=== PATIENT | male | born 1945 | race Hispanic/Latino ===

== ENCOUNTER 2018-03-11 21:50 | Emergency (ER) | payer OTHER ==
[2018-03-11 23:26] LABS: BASO % 0.2 % (0.0-1.0); HEMATOCRIT 27.6 % (42.0-52.0); HEMOGLOBIN 8.6 g/dl (13.5-17.5); IMMATURE GRANULOCYTE % 1.6 % (0-3.0); LYMPH # 0.9 10^3/uL (1.5-4.5); LYMPH % 7.3 % (24.0-44.0); MEAN CORPUSCULAR HEMOGLOBIN 24.6 pg (27.0-33.0); MEAN CORPUSCULAR HGB CONC 31.2 g/dl (32.0-36.5); MEAN CORPUSCULAR VOLUME 79.1 fl (80.0-96.0); MONO # 0.8 10^3/uL (0.0-0.8); MONO % 6.2 % (0.0-5.0); NEUTROPHILS # 10.7 10^3/uL (1.8-7.7); NEUTROPHILS % 84.7 % (36.0-66.0); PLATELET COUNT, AUTOMATED 471 10^3/uL (150-450); RED BLOOD COUNT 3.49 10^6/uL (4.30-6.10); RED CELL DISTRIBUTION WIDTH 15.4 % (11.5-14.5); WHITE BLOOD COUNT 12.7 10^3/uL (4.0-10.0)
[2018-03-11] MEDS: ONDANSETRON 4MG/2ML VIAL (J2405) IV (23:42)
[2018-03-11] MEDS: NS 1,000 ML IV (23:42)
[2018-03-11 23:53] LABS: ALBUMIN 1.8 GM/DL (3.2-5.2); ALBUMIN/GLOBULIN RATIO 0.38 (1.00-1.93); ALKALINE PHOSPHATASE 738 U/L (45-117); ALT/SGPT 52 U/L (12-78); ANION GAP 12 MEQ/L (8-16); AST/SGOT 75 U/L (7-37); BILIRUBIN,DIRECT < 0.1 MG/DL (0.0-0.2); BILIRUBIN,TOTAL 0.5 MG/DL (0.2-1.0); BLOOD UREA NITROGEN 21 MG/DL (7-18); CALCIUM LEVEL 7.6 MG/DL (8.8-10.2); CARBON DIOXIDE LEVEL 21 MEQ/L (21-32); CHLORIDE LEVEL 102 MEQ/L (98-107); CREATININE FOR GFR 1.21 MG/DL (0.70-1.30); GLOMERULAR FILTRATION RATE > 60.0 (>42); GLUCOSE, FASTING 171 MG/DL (70-100); LIPASE 105 U/L (73-393); POTASSIUM SERUM 4.8 MEQ/L (3.5-5.1); SODIUM LEVEL 135 MEQ/L (136-145); TOTAL PROTEIN 6.6 GM/DL (6.4-8.2)
[2018-03-12] MEDS ORDERED: ISOVUE-370 76% 100ML VIAL (Q9967) As Ordered
[2018-03-12 01:52] LABS: KETONE, URINE AUTO RFX NEGATIVE (NEGATIVE); LEUKOCYTE ESTERASE UR AUTO RFX NEGATIVE (NEGATIVE); NITRITE, URINE AUTO RFX NEGATIVE (NEGATIVE); RBC, URINE AUTO RFX 3 /HPF (0-3); SPECIFIC GRAVITY UR AUTO RFX 1.024 (1.002-1.035); SQUAM EPITHELIAL CELL UR AURFX 0 /HPF (0-6); WBC, URINE AUTO RFX 2 /HPF (0-3)
== END 2018-03-12 02:30 | disposition home or self-care (01) ==
LOC: M ED 21:50
DX: C61 Malignant neoplasm of prostate (principal); R33.9 Retention of urine, unspecified; C79.51 Secondary malignant neoplasm of bone; R11.10 Vomiting, unspecified; R63.0 Anorexia; R63.4 Abnormal weight loss; F17.200 Nicotine dependence, unspecified, uncomplicated; Z79.899 Other long term (current) drug therapy; Z79.52 Long term (current) use of systemic steroids
CPT/HCPCS: J2405

== ENCOUNTER → 2018-03-14 | Outpatient (CLI) | payer MEDICARE | LOC: M SMT 09:36 | DX: C61 Malignant neoplasm of prostate (principal) | CPT/HCPCS: 84153 ==

== ENCOUNTER 2018-03-21 12:05 | Emergency (ER) | payer MEDICARE, OTHER ==
[2018-03-21] MEDS: NS 1,000 ML IV (12:42)
[2018-03-21 12:50] LABS: BASO % 0.2 % (0.0-1.0); EOS % 0.1 % (0.0-3.0); HEMATOCRIT 30.4 % (42.0-52.0); HEMOGLOBIN 9.3 g/dl (13.5-17.5); IMMATURE GRANULOCYTE % 4.5 % (0-3.0); LYMPH # 0.9 10^3/uL (1.5-4.5); LYMPH % 9.2 % (24.0-44.0); MEAN CORPUSCULAR HEMOGLOBIN 24.5 pg (27.0-33.0); MEAN CORPUSCULAR HGB CONC 30.6 g/dl (32.0-36.5); MEAN CORPUSCULAR VOLUME 80.2 fl (80.0-96.0); MONO # 0.7 10^3/uL (0.0-0.8); MONO % 6.8 % (0.0-5.0); NEUTROPHILS # 7.9 10^3/uL (1.8-7.7); NEUTROPHILS % 79.2 % (36.0-66.0); PLATELET COUNT, AUTOMATED 437 10^3/uL (150-450); RED BLOOD COUNT 3.79 10^6/uL (4.30-6.10); RED CELL DISTRIBUTION WIDTH 16.6 % (11.5-14.5)
[2018-03-21 13:41] LABS: ACETAMINOPHEN LEVEL < 2.0 UG/ML (10.0-30.0); ALBUMIN/GLOBULIN RATIO 0.33 (1.00-1.93); ALKALINE PHOSPHATASE 822 U/L (45-117); ALT/SGPT 27 U/L (12-78); ANION GAP 12 MEQ/L (8-16); AST/SGOT 43 U/L (7-37); BILIRUBIN,DIRECT 0.1 MG/DL (0.0-0.2); BILIRUBIN,TOTAL 0.4 MG/DL (0.2-1.0); BLOOD UREA NITROGEN 23 MG/DL (7-18); CALCIUM LEVEL 8.4 MG/DL (8.8-10.2); CARBON DIOXIDE LEVEL 24 MEQ/L (21-32); CHLORIDE LEVEL 100 MEQ/L (98-107); CK-MB VALUE MASS < 1.0 NG/ML (<3.6); CPK CREATINE PHOSPHOKINASE 45 U/L (39-308); CREATININE FOR GFR 1.17 MG/DL (0.70-1.30); GLOMERULAR FILTRATION RATE > 60.0 (>42); GLUCOSE, FASTING 124 MG/DL (70-100); MB/CK RELATIVE INDEX 2.22 (< OR =4); POTASSIUM SERUM 3.7 MEQ/L (3.5-5.1); SALICYLATE LEVEL < 1.7 MG/DL (5.0-30.0); SODIUM LEVEL 136 MEQ/L (136-145); THYROID STIMULATING HORMONE 0.776 uIU/ML (0.358-3.740); TOTAL PROTEIN 8.1 GM/DL (6.4-8.2); TROPONIN I < 0.02 NG/ML (< 0.10)
[2018-03-21] MEDS: predniSONE 20 MG TAB PO (14:20)
[2018-03-21] MEDS: valACYclovir HCL 500 MG TAB PO (14:20)
== END 2018-03-21 14:22 | disposition home or self-care (01) ==
LOC: M ED 12:05
DX: G51.0 Bell's palsy (principal); I10 Essential (primary) hypertension; I25.10 Atherosclerotic heart disease of native coronary artery without angina pectoris; Z82.49 Family history of ischemic heart disease and other diseases of the circulatory system; Z79.899 Other long term (current) drug therapy; Z87.891 Personal history of nicotine dependence
CPT/HCPCS: 71045

== ENCOUNTER → 2018-03-23 | Outpatient (REF) | payer MEDICARE, OTHER ==
[2018-03-23 18:53] LABS: APPEARANCE, URINE CLOUDY (CLEAR); BACTERIA, URINE AUTO 3+ (NEGATIVE); BILIRUBIN, URINE AUTO NEGATIVE (NEGATIVE); BLOOD, URINE BLOOD 2+ (NEGATIVE); COLOR, URINE YELLOW (YELLOW); GLUCOSE, URINE (UA) AUTO NEGATIVE (NEGATIVE); KETONE, URINE AUTO TRACE mg/dL (NEGATIVE); LEUKOCYTE ESTERASE, URINE AUTO 1+ (NEGATIVE); MUCUS, URINE SMALL (NEGATIVE); NITRITE, URINE AUTO NEGATIVE (NEGATIVE); PROTEIN, URINE AUTO 2+ mg/dL (NEGATIVE); RBC, URINE AUTO 4 /HPF (0-3); SPECIFIC GRAVITY URINE AUTO 1.015 (1.002-1.035); SQUAMOUS EPITHELIAL CELL UR AU 2 /HPF (0-6); UROBILINOGEN, URINE AUTO 0.2 mg/dL (0.0-2.0); WBC, URINE AUTO 18 /HPF (0-3)
== END ==
LOC: M SMT 17:00
DX: R33.9 Retention of urine, unspecified (principal)
CPT/HCPCS: 81001

== ENCOUNTER → 2018-03-29 | Outpatient (CLI) | payer MEDICARE, MEDICAID, OTHER | LOC: M ONCR 09:00 | DX: C61 Malignant neoplasm of prostate (principal); C79.51 Secondary malignant neoplasm of bone | CPT/HCPCS: G0463 ==

== ENCOUNTER → 2018-04-03 | Outpatient (CLI) | payer MEDICARE, OTHER | LOC: M RAD 10:58 | DX: C61 Malignant neoplasm of prostate (principal); M25.551 Pain in right hip; M25.552 Pain in left hip | CPT/HCPCS: 72170 ==

== ENCOUNTER 2018-04-05 10:18 | Outpatient (RCR) | payer MEDICARE | END 2018-04-18 | LOC: M ONCR 10:18 | DX: C79.51 Secondary malignant neoplasm of bone (principal); C61 Malignant neoplasm of prostate | CPT/HCPCS: 77334 ==

== ENCOUNTER → 2018-04-05 | Outpatient (CLI) | payer MEDICARE, MEDICAID | LOC: M RAD 10:11 | DX: C61 Malignant neoplasm of prostate (principal); C79.51 Secondary malignant neoplasm of bone | CPT/HCPCS: 78306 ==

== ENCOUNTER → 2018-04-12 | Outpatient (CLI) | payer MEDICARE, OTHER ==
[2018-04-12 11:38] LABS: CHOLESTEROL LEVEL 156 MG/DL (<200); CHOLESTEROL RISK RATIO 4.333 (<5); HDL CHOLESTEROL 36 MG/DL (>40); LDL CHOLESTEROL 92 MG/DL (<100); NON-HDL-C 120 MG/DL; TRIGLYCERIDES LEVEL 140 MG/DL (<150)
[2018-04-12 11:44] LABS: ESTIMATED AVERAGE GLUCOSE 174 MG/DL (60-110); HEMOGLOBIN A1c 7.7 %
[2018-04-12 20:49] LABS: TOTAL 25(OH) VITAMIN D 26.2 NG/ML (30.0-100.0)
[2018-04-13 14:47] LABS: Lyme Disease IgG/IgM Antibodie <0.91 ISR (0.00-0.90); Lyme Disease IgM Ab Quantitati <0.80 index (0.00-0.79)
== END ==
LOC: M LAB 10:01
DX: E11.9 Type 2 diabetes mellitus without complications (principal); E78.5 Hyperlipidemia, unspecified; R29.810 Facial weakness

== ENCOUNTER → 2018-04-12 | Outpatient (CLI) | payer MEDICARE ==
[~2018-04-12] MED LIST: PROHANCE 279.3MG/ML 5ML VIAL (A9576) As Ordered
== END ==
LOC: M RAD 14:55
DX: C61 Malignant neoplasm of prostate (principal); I73.9 Peripheral vascular disease, unspecified; E11.51 Type 2 diabetes mellitus with diabetic peripheral angiopathy without gangrene; D32.0 Benign neoplasm of cerebral meninges; R51 Headache; R11.0 Nausea; E78.5 Hyperlipidemia, unspecified; R29.810 Facial weakness
CPT/HCPCS: A9576

== ENCOUNTER 2018-04-16 21:51 | Inpatient (IN) | payer MEDICARE, OTHER ==
[2018-04-16] MEDS: NS 1,000 ML IV (23:15)
[2018-04-16 23:54] LABS: VENOUS BASE EXCESS -1.4 (-2.0-2.0); VENOUS HCO3 22.9 MEQ/L (23.0-27.0); VENOUS O2 SATURATION 63.2 % (60.0-80.0); VENOUS PARTIAL PRESSURE CO2 36.3 mmHg (38.0-50.0); VENOUS PARTIAL PRESSURE O2 33.9 mmHg (30.0-50.0); VENOUS PH 7.418 UNITS (7.330-7.430); VENOUS STANDARD HCO3 22.9 MEQ/L
[2018-04-17 00:07] LABS: KETONE, URINE AUTO RFX NEGATIVE (NEGATIVE); MUCUS, URINE RFX SMALL (NEGATIVE); RBC, URINE AUTO RFX 22 /HPF (0-3); SPECIFIC GRAVITY UR AUTO RFX 1.012 (1.002-1.035); SQUAM EPITHELIAL CELL UR AURFX 0 /HPF (0-6); URIC ACID CRYSTALS RFX SMALL
[2018-04-17 00:09] LABS: LEUKOCYTE ESTERASE UR AUTO RFX 3+ (NEGATIVE); NITRITE, URINE AUTO RFX POSITIVE (NEGATIVE); WBC, URINE AUTO RFX 160 /HPF (0-3)
[2018-04-17 00:13] LABS: BASO % 0.1 % (0.0-1.0); EOS % 0.1 % (0.0-3.0); HEMATOCRIT 25.2 % (42.0-52.0); HEMOGLOBIN 7.6 g/dl (13.5-17.5); IMMATURE GRANULOCYTE % 4.7 % (0-3.0); LYMPH # 1.1 10^3/uL (1.5-4.5); LYMPH % 15.1 % (24.0-44.0); MEAN CORPUSCULAR HEMOGLOBIN 24.4 pg (27.0-33.0); MEAN CORPUSCULAR HGB CONC 30.2 g/dl (32.0-36.5); MEAN CORPUSCULAR VOLUME 80.8 fl (80.0-96.0); MONO # 0.5 10^3/uL (0.0-0.8); MONO % 6.7 % (0.0-5.0); NEUTROPHILS # 5.2 10^3/uL (1.8-7.7); NEUTROPHILS % 73.3 % (36.0-66.0); PLATELET COUNT, AUTOMATED 220 10^3/uL (150-450); RED BLOOD COUNT 3.12 10^6/uL (4.30-6.10); RED CELL DISTRIBUTION WIDTH 20.4 % (11.5-14.5)
[2018-04-17 00:16] LABS: AMMONIA < 10 uMOL/L (<32)
[2018-04-17 00:24] LABS: ACETAMINOPHEN LEVEL < 2.0 UG/ML (10.0-30.0); ALBUMIN 1.9 GM/DL (3.2-5.2); ALBUMIN/GLOBULIN RATIO 0.46 (1.00-1.93); ALKALINE PHOSPHATASE 794 U/L (45-117); ALT/SGPT 39 U/L (12-78); ANION GAP 12 MEQ/L (8-16); AST/SGOT 38 U/L (7-37); BILIRUBIN,DIRECT < 0.1 MG/DL (0.0-0.2); BILIRUBIN,TOTAL 0.2 MG/DL (0.2-1.0); BLOOD UREA NITROGEN 18 MG/DL (7-18); CALCIUM LEVEL 7.7 MG/DL (8.8-10.2); CARBON DIOXIDE LEVEL 22 MEQ/L (21-32); CHLORIDE LEVEL 108 MEQ/L (98-107); CPK CREATINE PHOSPHOKINASE 90 U/L (39-308); CREATININE FOR GFR 1.04 MG/DL (0.70-1.30); ETHYL ALCOHOL (ETHANOL) < 0.003 % (0.000-0.010); GLOMERULAR FILTRATION RATE > 60.0 (>42); GLUCOSE, FASTING 130 MG/DL (70-100); MB/CK RELATIVE INDEX 2.56 (< OR =4); POTASSIUM SERUM 3.4 MEQ/L (3.5-5.1); SALICYLATE LEVEL < 1.7 MG/DL (5.0-30.0); SODIUM LEVEL 142 MEQ/L (136-145); THYROID STIMULATING HORMONE 0.909 uIU/ML (0.358-3.740); TROPONIN I 0.05 NG/ML (< 0.10)
[2018-04-17 00:45] LABS: RETIC HEMOGLOBIN EQUIVALENT 24.7 pg (24-36); RETICULOCYTE # 44.6 10^9/L (17-77); RETICULOCYTE % 1.4 % (0.5-1.5)
[2018-04-17 00:54] LABS: AMPHETAMINES LEVEL URINE NEGATIVE (NEGATIVE); BARBITURATES URINE NEGATIVE (NEGATIVE); BENZODIAZEPINES URINE NEGATIVE (NEGATIVE); CANNABINOIDS URINE NEGATIVE (NEGATIVE); COCAINE METABOLITE URINE NEGATIVE (NEGATIVE); METHADONE URINE NEGATIVE (NEGATIVE); OPIATES URINE NEGATIVE (NEGATIVE); PHENCYCLIDINE URINE NEGATIVE (NEGATIVE)
[2018-04-17 00:57] LABS: LACTIC ACID SEPSIS PROTOCOL 1.8 MMOL/L (0.4-2.0)
[2018-04-17 01:03] LABS: INR 1.17; PROTHROMBIN TIME 15.1 SECONDS (12.1-14.4)
[2018-04-17 01:05] LABS: PARTIAL THROMBOPLASTIN TIME 32.2 SECONDS (25.4-37.6)
[2018-04-17] MEDS: CIPROFLOXACIN 400 MG in APPROPRIATE DILUENT 1 EA IV (01:30)
[2018-04-17 02:22] LABS: IMMEDIATE SPIN CROSSMATCH 1 2
[2018-04-17] MEDS: NS 1,000 ML IV ×2 (03:37→21:05)
[2018-04-17] MEDS ORDERED: BISACODYL 5 MG TAB PO (03:45)
[2018-04-17] MEDS: HEPARIN SOD (PORCINE) 5000 UNITS/ML VIAL SC ×3 (05:59→21:05)
[2018-04-17 07:13] LABS: BASO % 0.2 % (0.0-1.0); EOS % 0.3 % (0.0-3.0); HEMATOCRIT 24.7 % (42.0-52.0); HEMOGLOBIN 7.8 g/dl (13.5-17.5); IMMATURE GRANULOCYTE % 4.3 % (0-3.0); LYMPH # 0.9 10^3/uL (1.5-4.5); LYMPH % 15.4 % (24.0-44.0); MEAN CORPUSCULAR HEMOGLOBIN 25.2 pg (27.0-33.0); MEAN CORPUSCULAR HGB CONC 31.6 g/dl (32.0-36.5); MEAN CORPUSCULAR VOLUME 79.9 fl (80.0-96.0); MONO # 0.4 10^3/uL (0.0-0.8); MONO % 7.6 % (0.0-5.0); NEUTROPHILS # 4.2 10^3/uL (1.8-7.7); NEUTROPHILS % 72.2 % (36.0-66.0); PLATELET COUNT, AUTOMATED 197 10^3/uL (150-450); RED BLOOD COUNT 3.09 10^6/uL (4.30-6.10); RED CELL DISTRIBUTION WIDTH 18.7 % (11.5-14.5); WHITE BLOOD COUNT 5.8 10^3/uL (4.0-10.0)
[2018-04-17 07:32] LABS: ANION GAP 11 MEQ/L (8-16); BLOOD UREA NITROGEN 12 MG/DL (7-18); CALCIUM LEVEL 7.7 MG/DL (8.8-10.2); CARBON DIOXIDE LEVEL 23 MEQ/L (21-32); CHLORIDE LEVEL 108 MEQ/L (98-107); CREATININE FOR GFR 0.89 MG/DL (0.70-1.30); GLOMERULAR FILTRATION RATE > 60.0 (>42); GLUCOSE, FASTING 129 MG/DL (70-100); SODIUM LEVEL 142 MEQ/L (136-145)
[2018-04-17] MEDS: TAMSULOSIN 0.4 MG CAP PO (08:41)
[2018-04-17] MEDS: POTASSIUM CHLORIDE 10 MEQ SR TABLET PO ×2 (08:41→18:30)
[2018-04-17 11:38] LABS: MAGNESIUM LEVEL 1.7 MG/DL (1.8-2.4)
[2018-04-17] MEDS: MAG SULF 1GM/100ML (MAG RUN) 1 GM in APPROPRIATE DILUENT 1 EA IV ×2 (12:00→13:00)
[2018-04-17 12:21] LABS: HEMATOCRIT 26.6 % (42.0-52.0); HEMOGLOBIN 8.2 g/dl (13.5-17.5)
[2018-04-17 18:26] LABS: HEMOGLOBIN 7.9 g/dl (13.5-17.5)
[2018-04-17] MEDS: PROCHLORPERAZINE 5 MG TAB (S0183) PO (22:22)
[2018-04-18] MEDS: HEPARIN SOD (PORCINE) 5000 UNITS/ML VIAL SC ×3 (05:15→21:32)
[2018-04-18 06:21] LABS: HEMATOCRIT 29.7 % (42.0-52.0); HEMOGLOBIN 9.3 g/dl (13.5-17.5); MEAN CORPUSCULAR HEMOGLOBIN 25.3 pg (27.0-33.0); MEAN CORPUSCULAR HGB CONC 31.3 g/dl (32.0-36.5); MEAN CORPUSCULAR VOLUME 80.9 fl (80.0-96.0); PLATELET COUNT, AUTOMATED 185 10^3/uL (150-450); RED BLOOD COUNT 3.67 10^6/uL (4.30-6.10); RED CELL DISTRIBUTION WIDTH 18.4 % (11.5-14.5); WHITE BLOOD COUNT 5.6 10^3/uL (4.0-10.0)
[2018-04-18 06:43] LABS: ANION GAP 8 MEQ/L (8-16); BLOOD UREA NITROGEN 11 MG/DL (7-18); CALCIUM LEVEL 8.3 MG/DL (8.8-10.2); CARBON DIOXIDE LEVEL 24 MEQ/L (21-32); CHLORIDE LEVEL 110 MEQ/L (98-107); CREATININE FOR GFR 0.84 MG/DL (0.70-1.30); GLOMERULAR FILTRATION RATE > 60.0 (>42); GLUCOSE, FASTING 118 MG/DL (70-100); SODIUM LEVEL 142 MEQ/L (136-145)
[2018-04-18] MEDS: TAMSULOSIN 0.4 MG CAP PO (08:30)
[2018-04-18 09:08] LABS: MAGNESIUM LEVEL 2.2 MG/DL (1.8-2.4)
[2018-04-18] MEDS: VANCOMYCIN HCL 750 MG, VIAL MATE ADAPTER 1 EACH in D5W 250 ML IV (11:12)
[2018-04-18 13:01] LABS: RETICULOCYTE # 47.1 10^9/L (17-77); RETICULOCYTE % 1.3 % (0.5-1.5)
[2018-04-18] MEDS: VANCOMYCIN HCL 500 MG in D5W MINI-BAG PLUS 100 ML IV (13:07)
[2018-04-18 13:44] LABS: FERRITIN 1986 NG/ML (26-388); IRON (FE) 60 UG/DL (65-175); TOTAL IRON BINDING CAPACITY 154 UG/DL (250-450)
[2018-04-18 14:42] LABS: Lyme Disease IgG/IgM Antibodie <0.91 ISR (0.00-0.90); Lyme Disease IgM Ab Quantitati <0.80 index (0.00-0.79)
[2018-04-18] MEDS: ACETAMINOPHEN TAB 650MG DOSE (2X325MG) PO ×2 (16:42→22:43)
[2018-04-18] MEDS: PROCHLORPERAZINE 5 MG TAB (S0183) PO (21:34)
[2018-04-18] MEDS: VANCOMYCIN HCL 1,000 MG, VIAL MATE ADAPTER 1 EACH in D5W 250 ML IV (22:38)
[2018-04-19] MEDS: MORPHINE 4 MG/ML 1ML VIAL/SYRINGE (J2270) IV (01:19)
[2018-04-19] MEDS: HEPARIN SOD (PORCINE) 5000 UNITS/ML VIAL SC ×3 (05:43→21:10)
[2018-04-19] MEDS: ACETAMINOPHEN TAB 650MG DOSE (2X325MG) PO (05:46)
[2018-04-19 06:14] LABS: HEMATOCRIT 30.5 % (42.0-52.0); HEMOGLOBIN 9.5 g/dl (13.5-17.5); MEAN CORPUSCULAR HEMOGLOBIN 25.7 pg (27.0-33.0); MEAN CORPUSCULAR HGB CONC 31.1 g/dl (32.0-36.5); MEAN CORPUSCULAR VOLUME 82.4 fl (80.0-96.0); PLATELET COUNT, AUTOMATED 181 10^3/uL (150-450); RED CELL DISTRIBUTION WIDTH 18.6 % (11.5-14.5); WHITE BLOOD COUNT 5.3 10^3/uL (4.0-10.0)
[2018-04-19 06:42] LABS: ANION GAP 7 MEQ/L (8-16); BLOOD UREA NITROGEN 10 MG/DL (7-18); CALCIUM LEVEL 8.1 MG/DL (8.8-10.2); CARBON DIOXIDE LEVEL 25 MEQ/L (21-32); CHLORIDE LEVEL 107 MEQ/L (98-107); CREATININE FOR GFR 0.83 MG/DL (0.70-1.30); GLOMERULAR FILTRATION RATE > 60.0 (>42); GLUCOSE, FASTING 98 MG/DL (70-100); POTASSIUM SERUM 3.6 MEQ/L (3.5-5.1); SODIUM LEVEL 139 MEQ/L (136-145)
[2018-04-19] MEDS: TAMSULOSIN 0.4 MG CAP PO (08:59)
[2018-04-19 11:34] LABS: BEDSIDE GLUCOSE 104 MG/DL (83-110)
[2018-04-19] MEDS: VANCOMYCIN HCL 1,000 MG, VIAL MATE ADAPTER 1 EACH in D5W 250 ML IV ×2 (12:28→23:07)
[2018-04-19 16:55] LABS: BEDSIDE GLUCOSE 107 MG/DL (83-110)
[2018-04-19 21:02] LABS: BEDSIDE GLUCOSE 111 MG/DL (83-110)
[2018-04-19 23:03] LABS: VANCOMYCIN LEVEL TROUGH 23.6 UG/ML (10.0-20.0)
[2018-04-20] MEDS: ACETAMINOPHEN TAB 650MG DOSE (2X325MG) PO (00:06)
[2018-04-20] MEDS: PROCHLORPERAZINE 5 MG TAB (S0183) PO (03:08)
[2018-04-20] MEDS: HEPARIN SOD (PORCINE) 5000 UNITS/ML VIAL SC (05:27)
[2018-04-20 06:28] LABS: HEMOGLOBIN 9.8 g/dl (13.5-17.5); MEAN CORPUSCULAR HEMOGLOBIN 25.8 pg (27.0-33.0); MEAN CORPUSCULAR HGB CONC 31.6 g/dl (32.0-36.5); MEAN CORPUSCULAR VOLUME 81.6 fl (80.0-96.0); PLATELET COUNT, AUTOMATED 204 10^3/uL (150-450); RED CELL DISTRIBUTION WIDTH 18.8 % (11.5-14.5)
[2018-04-20 06:55] LABS: ANION GAP 10 MEQ/L (8-16); BLOOD UREA NITROGEN 13 MG/DL (7-18); CALCIUM LEVEL 7.8 MG/DL (8.8-10.2); CARBON DIOXIDE LEVEL 24 MEQ/L (21-32); CHLORIDE LEVEL 105 MEQ/L (98-107); GLOMERULAR FILTRATION RATE > 60.0 (>42); GLUCOSE, FASTING 85 MG/DL (70-100); POTASSIUM SERUM 3.6 MEQ/L (3.5-5.1); SODIUM LEVEL 139 MEQ/L (136-145)
[2018-04-20] MEDS: TAMSULOSIN 0.4 MG CAP PO (11:26)
[2018-04-20 11:36] LABS: BEDSIDE GLUCOSE 120 MG/DL (83-110)
[2018-04-20] MEDS: MORPHINE 4 MG/ML 1ML VIAL/SYRINGE (J2270) IV ×2 (14:45→16:46)
[2018-04-20] MEDS: DOXYCYCLINE HYCLATE 100 MG TAB PO ×2 (14:45→21:46)
[2018-04-20] MEDS: ONDANSETRON 4 MG ORAL DISINTEGRATING TAB (Q0162 PER 1MG) PO (14:52)
[2018-04-20] MEDS: LORazepam 1 MG TAB PO (16:46)
[2018-04-20] MEDS ORDERED: VANCOMYCIN HCL 1,000 MG, VIAL MATE ADAPTER 1 EACH in D5W 250 ML IV (18:00)
[2018-04-21] MEDS: MORPHINE 4 MG/ML 1ML VIAL/SYRINGE (J2270) IV ×5 (02:02→20:35)
[2018-04-21] MEDS: DOXYCYCLINE HYCLATE 100 MG TAB PO ×2 (09:28→20:35)
[2018-04-21] MEDS: TAMSULOSIN 0.4 MG CAP PO (09:28)
[2018-04-22] MEDS: MORPHINE 4 MG/ML 1ML VIAL/SYRINGE (J2270) IV ×5 (01:58→22:54)
[2018-04-22] MEDS: DOXYCYCLINE HYCLATE 100 MG TAB PO ×2 (08:31→20:41)
[2018-04-22] MEDS: TAMSULOSIN 0.4 MG CAP PO (08:31)
[2018-04-22] MEDS: ONDANSETRON 4 MG ORAL DISINTEGRATING TAB (Q0162 PER 1MG) PO ×2 (08:31→17:41)
[2018-04-22] MEDS: PROCHLORPERAZINE 5 MG TAB (S0183) PO (12:06)
[2018-04-23] MEDS: MORPHINE 4 MG/ML 1ML VIAL/SYRINGE (J2270) IV ×3 (03:24→18:01)
[2018-04-23] MEDS: TAMSULOSIN 0.4 MG CAP PO (10:36)
[2018-04-23] MEDS: DOXYCYCLINE HYCLATE 100 MG TAB PO ×2 (10:36→20:14)
[2018-04-24] MEDS: MORPHINE 4 MG/ML 1ML VIAL/SYRINGE (J2270) IV (02:09)
[2018-04-24] MEDS: DOXYCYCLINE HYCLATE 100 MG TAB PO (08:30)
[2018-04-24] MEDS: TAMSULOSIN 0.4 MG CAP PO (08:30)
[2018-04-24] MEDS: ONDANSETRON 4 MG ORAL DISINTEGRATING TAB (Q0162 PER 1MG) PO (08:39)
== END 2018-04-24 12:04 | disposition hospice, inpatient (51) | DRG 689 ==
LOC: M ED 21:51 → M ED INP 04-17 03:37 → M MSPAV 04-17 15:00
PROVIDERS: Specialist
PROC: 30233N1 Transfusion of Nonautologous Red Blood Cells into Peripheral Vein, Percutaneous Approach (ICD-10-PCS; principal; 2018-04-17)
DX: N39.0 Urinary tract infection, site not specified (principal); G93.41 Metabolic encephalopathy; C79.51 Secondary malignant neoplasm of bone; R53.81 Other malaise; C61 Malignant neoplasm of prostate; B95.62 Methicillin resistant Staphylococcus aureus infection as the cause of diseases classified elsewhere; E11.9 Type 2 diabetes mellitus without complications; G51.0 Bell's palsy; E87.6 Hypokalemia; D63.0 Anemia in neoplastic disease; D32.9 Benign neoplasm of meninges, unspecified; Z79.899 Other long term (current) drug therapy